=== PATIENT | male | born 1945 | race Caucasian/White ===

== ENCOUNTER 2021-09-26 08:47 | Day surgery (SDC) | payer MEDICARE, BC ==
[2021-09-24 18:12] VITALS: BMI 30.7
[~2021-09-26 08:47] MED LIST: ALPRAZolam 0.25 MG TAB PO PRN; ALPRAZolam 0.5 MG TAB PO PRN; ASPIRIN 325 MG TAB PO STA; ATORVASTATIN 80 MG TAB PO STA; HEPARIN SODIUM,PORCINE 10,000 UNIT in SODIUM CHLORIDE 0.9% 1,000 ML IRRIGATION PRN; HEPARIN SODIUM,PORCINE 2,500 UNIT in SODIUM CHLORIDE 0.9% 250 ML IRRIGATION PRN; NITROGLYCERIN SL TABS 0.4 MG TAB SUBLINGUAL PRN; SODIUM CHLORIDE 0.9% 1,000 ML in EMPTY BAG 1 BAG IV SCH
[2021-09-26 09:10] VITALS: TEMP 97.7
[2021-09-26 09:35] LABS: African American GFR (CKD) >90 (>60 ml/min/1.73 sqM); Anion Gap 6 mmol/L; Blood Urea Nitrogen 9 mg/dL (9-20); Calcium 9.1 mg/dL (8.4-10.2); Carbon Dioxide 24 mmol/L (22-30); Chloride 108 mmol/L (98-107); Glucose 119 mg/dL (74-99); Non-African American GFR(CKD) 85 (>60 ml/min/1.73 sqM); Potassium 4.4 mmol/L (3.5-5.1); Sodium 138 mmol/L (137-145)
[2021-09-26 09:40] LABS: HCT 52.9 % (39.0-53.0); HGB 17.8 gm/dL (13.0-17.5); MCH 32.7 pg (25.0-35.0); MCHC 33.6 g/dL (31.0-37.0); MCV 97.3 fL (80.0-100.0); Mean Platelet Volume 7.2; Platelet Count 214 k/uL (150-450); RBC 5.44 m/uL (4.30-5.90); RDW 13.2 % (11.5-15.5); WBC 7.1 k/uL (3.8-10.6)
[2021-09-26 10:33] LABS: Band Neutrophils % 1 %; Eosinophils # (M) 0.36 k/uL (0-0.7); Metamyelocytes # (M) 0.07 k/uL (0); Metamyelocytes % 1 %; Monocytes # (M) 0.92 k/uL (0-1.0); Neutrophils % (M) 51 %; Nucleated Red Blood Cells 0 /100 WBC (0-0); Total Cells Counted 200
[2021-09-26 10:34] LABS: Reactive Lymphocytes Present
[2021-09-26 10:35] LABS: RBC Morphology Normal
[2021-09-26] MEDS ORDERED: HEPARIN SODIUM 1,000 UN/ML (10ML VL) ONE (10:38)
[2021-09-26] MEDS: MIDAZOLAM 2 MG/2 ML VIAL IV ONE ×3 (10:48→11:37)
[2021-09-26] MEDS ORDERED: LIDOCAINE 1% INJ 10MG/ML (5 ML VIAL-PF) SQ ONE (10:50)
[2021-09-26] MEDS: VERAPAMIL SYRINGE (5 MG/10 ML) INTRAARTER ONE ×2 (10:54→11:07)
[2021-09-26] MEDS ORDERED: HEPARIN SODIUM 1,000 UN/ML (10ML VL) IV ONE (10:55)
[2021-09-26] MEDS ORDERED: LIDOCAINE 1% INJ 10MG/ML (30 ML VIAL-PF) SQ ONE (11:19)
[2021-09-26] MEDS ORDERED: IOPAMIDOL-300 100ML BTL INJ ONE (11:35)
[2021-09-26] MEDS ORDERED: NITROGLYCERIN 1000MCG/10ML SYRINGE INTRAARTER ONE (11:45)
[2021-09-26] MEDS ORDERED: IOPAMIDOL-370 100ML BTL INJ ONE (11:49)
[2021-09-26] MEDS ORDERED: SODIUM CHLORIDE 0.9% 1,000 ML IV SCH (12:00)
[2021-09-26] MEDS ORDERED: VERAPAMIL 2.5 MG/ML 2 ML AMP ONE (12:04)
[2021-09-26] MEDS ORDERED: ALBUTEROL HFA INHALER INHALATION PRN (13:05)
[2021-09-26] MEDS ORDERED: ALBUTEROL NEBULIZED 2.5 MG/3 ML INHALATION PRN (13:17)
[2021-09-26 14:51] VITALS: BP 133/65; PULSE 54; RESP 16
--- NOTE | 2021-09-26 20:10 | CC ---
CARDIAC CATHETERIZATION REPORT DATE OF SERVICE: 09/26/2021 PROCEDURE: 1. Left heart catheterization and coronary angiography. 2. IFR assessment of proximal LAD lesion. PERFORMED BY: Dr. Malia Dubon. Moderate conscious sedation time was 64 minutes. The patient was administered Versed. Oxygenation, hemodynamics and EKG were monitored closely. CLINICAL INFORMATION: Mr. Farshad Escobedo is a 76-year-old gentleman with history of lung malignancy, previous resection, moderate aortic regurgitation and mild stenosis, calcified coronary arteries, who had a recent positive stress test with Lexiscan which revealed inferolateral reversible defect with preserved ejection fraction. He was advised cardiac cath after due discussion. PROCEDURE NOTE: Under local anesthesia and strict aseptic precautions, a 6-Tajik introducer was placed in the right radial artery. There was extreme tortuosity in the ascending aorta. With some difficulty I did selective angiography of the right coronary artery. There was no significant disease. I could not advance the left catheter down into the aortic root. After some effort, I abandoned this and switched over to the right femoral approach. Under strict aseptic precautions and local anesthesia, a 6-Tajik introducer was placed in the right femoral artery. Using standard Joy catheters I performed coronary angiography, and a pigtail catheter was used to check LV pressure, but LV gram was not performed. I noted that there was a moderate to intermediate lesion in the LAD. It was just after a diagonal branch. I performed IFR of this vessel which came to be 0.91 and 0.92. I therefore did not pursue intervention. Following this, the sheath was taken out and Angio-Seal device used to secure hemostasis. I took the radial sheath out and obtained good hemostasis with a TR band. Saturation in the fingers was 94%. Patient tolerated the procedure well without complication. Findings were discussed with the patient and his . He will be discharged later on today. CARDIAC CATHETERIZATION FINDINGS: RIGHT CORONARY ARTERY: Technically a codominant vessel. It has no significant disease, 30% to 40% narrowing proximally. Minor irregularities and mild to moderate calcification. Distally it continues as a PDA branch. LEFT MAIN CORONARY ARTERY: Short, patent, mildly calcified vessel. No significant disease. It trifurcates into LAD, ramus and circumflex. LEFT ANTERIOR DESCENDING CORONARY ARTERY: Good-caliber vessel gives off a diagonal branch and there is an eccentric 55% lesion. Then the caliber improves, gives off smaller diagonal septal branches and runs all the way to the apex. This is an intermediate lesion immediately after a diagonal branch in the LAD. LEFT POSTERIOR CIRCUMFLEX CORONARY ARTERY: This is a fair-caliber vessel that runs laterally, gives off a good-sized obtuse marginal AV groove branch. No significant disease. RAMUS INTERMEDIUS: This is a small-caliber vessel, fair distribution, minor irregularities. No significant disease. HEMODYNAMICS: The left ventricular end-diastolic pressure was about 14 mmHg and there was a gradient of about 10 to 15 mmHg on pullback pressures. FINAL IMPRESSION: This patient has normal filling pressures, mild 10 to 15 mm gradient across aortic valve with a pigtail catheter on pullback. A codominant system. No significant disease in the RCA or circumflex or ramus. LAD had an intermediate 55% lesion. Left main is free of significant disease. RECOMMENDATIONS: I advised FFR, which was performed in the same setting. IFR PROCEDURE DETAILS: I used a JL4.5 guide catheter to cannulate the left coronary artery. The IFR wire was advanced and positioned in the mid to distal LAD. After appropriate calibration, I checked multiple IFR values; all of them came out to be in the range of 0.91 to 0.92. This was therefore not considered significant. Interestingly, the ischemia noted on the stress test was actually in the inferolateral wall. I discussed this with the patient. I did not do any intervention and I suggested we will do a stress test to check his symptoms of exertional shortness of breath if it corresponds with any EKG changes and explained this to the patient. He will be discharged later on today. MMODL / IJN: [id number] /
[2021-09-26] MEDS ORDERED: TIMOLOL 0.5% OPHTH DROPS 5 ML BTL BOTH EYES SCH (21:00)
[2021-09-26] MEDS ORDERED: NON FORMULARY DRUG (Diclofenac Sodium [Voltaren] 75 MG Tablet) PO SCH (21:00)
[2021-09-26] MEDS ORDERED: ATORVASTATIN 20 MG TAB PO SCH (21:00)
[2021-09-27] MEDS ORDERED: PANTOPRAZOLE 40 MG TABLET PO SCH (07:30)
[2021-09-27] MEDS ORDERED: FORMOTEROL FUMARATE 20 MCG/2 ML NEBU INHALATION SCH (08:00)
[2021-09-27] MEDS ORDERED: IPRATROPIUM 0.5 MG/2.5 ML NEBU INHALATION SCH (08:00)
[2021-09-27] MEDS ORDERED: ASPIRIN 81 MG PO SCH (09:00)
[2021-09-27] MEDS ORDERED: NON FORMULARY DRUG (Latanoprost/Pf [Latanoprost 0.005% Eye Drop] 7.5 ML Ml) BOTH EYES SCH (09:00)
[2021-09-27] MEDS ORDERED: METOPROLOL TARTRATE 25 MG TAB PO SCH (09:00)
[2021-09-27] MEDS ORDERED: FINASTERIDE 5 MG TAB PO SCH (09:00)
[2021-09-27] MEDS ORDERED: TAMSULOSIN 0.4 MG CAP.ER.24H PO SCH (09:00)
== END 2021-09-26 16:40 | disposition home or self-care (01) ==
LOC: CATHCVL 08:47
PROVIDERS: ATTEND Internal Medicine Interventional Cardiology
DX: I25.10 Atherosclerotic heart disease of native coronary artery without angina pectoris (principal); R94.39 Abnormal result of other cardiovascular function study; I35.2 Nonrheumatic aortic (valve) stenosis with insufficiency; I10 Essential (primary) hypertension; E78.5 Hyperlipidemia, unspecified; I71.2 Thoracic aortic aneurysm, without rupture; E78.00 Pure hypercholesterolemia, unspecified; Z20.822 Contact with and (suspected) exposure to COVID-19; Z85.118 Personal history of other malignant neoplasm of bronchus and lung; Z90.2 Acquired absence of lung [part of]; Z79.899 Other long term (current) drug therapy; Z85.820 Personal history of malignant melanoma of skin; Z82.49 Family history of ischemic heart disease and other diseases of the circulatory system
CPT/HCPCS: 93458; 93799; 80048; 85025; 87635; C1769 ×5; C1760; C1887; C1894 ×2; J2250; J2001 ×2; J1644; Q9967 ×2

== ENCOUNTER 2023-12-30 08:03 | Inpatient (IN) | payer MEDICARE, BC ==
[~2023-12-30 08:03] MED LIST changes: -ALPRAZolam 0.25 MG TAB PO PRN; -ALPRAZolam 0.5 MG TAB PO PRN; -ASPIRIN 325 MG TAB PO STA; -ATORVASTATIN 80 MG TAB PO STA; -HEPARIN SODIUM,PORCINE 10,000 UNIT in SODIUM CHLORIDE 0.9% 1,000 ML IRRIGATION PRN; -HEPARIN SODIUM,PORCINE 2,500 UNIT in SODIUM CHLORIDE 0.9% 250 ML IRRIGATION PRN; -NITROGLYCERIN SL TABS 0.4 MG TAB SUBLINGUAL PRN; -SODIUM CHLORIDE 0.9% 1,000 ML in EMPTY BAG 1 BAG IV SCH; +TRANEXAMIC 1,000 MG/100ML-NACL 1,000 MG in SALINE 1 100ML.BAG IVPB PRN; +fentaNYL (PF) 50 MCG/ML 2 ML AMP IV PRN
[2023-12-30] MEDS: ACETAMINOPHEN TAB 500 MG TAB PO PRN (08:45)
[2023-12-30] MEDS: MELOXICAM 7.5 MG TAB PO PRN (08:45)
[2023-12-30] MEDS: GABAPENTIN 300 MG CAP PO PRN (08:45)
[2023-12-30] MEDS: ONDANSETRON 4 MG/2 ML VIAL IVP PRN (09:30)
[2023-12-30] MEDS: LACTATED RINGERS 1,000 ML IV SCH ×2 (09:30→17:15)
[2023-12-30] MEDS: DEXAMETHASONE SOD PHOSPHATE 4 MG/ML 1 ML VIAL IV ONE (09:30)
[2023-12-30] MEDS ORDERED: HYDROmorphone 0.5 MG/0.5 ML SYRINGE IVP PRN ×2 (09:34)
[2023-12-30] MEDS ORDERED: NA PHOS,M-B/NA PHOS,DI-BA 133 ML ENEMA RECTAL PRN (09:34)
[2023-12-30] MEDS ORDERED: NALOXONE 0.4 MG/ML 1 ML VIAL IV PRN (09:34)
[2023-12-30] MEDS ORDERED: MAGNESIUM HYDROXIDE 2,400 MG/30 ML CUP PO PRN (09:34)
[2023-12-30] MEDS ORDERED: HYDROcodone/APAP 7.5-325MG 1 EACH TAB PO PRN (09:37)
[2023-12-30] MEDS: MIDAZOLAM 2 MG/2 ML VIAL IV ONE (09:37)
[2023-12-30] MEDS: IV FLUID CONTINUATION 1,000 ML IV ONE (09:39)
[2023-12-30 10:04] LABS: Partial Thromboplastin Time 25.2 sec (22.0-30.0); Prothrombin Time 10.8 sec (10.0-12.5)
[2023-12-30] MEDS ORDERED: MIDAZOLAM 2 MG/2 ML VIAL ONE (10:12)
[2023-12-30] MEDS ORDERED: diphenhydrAMINE 50 MG/ML 1 ML VIAL ONE (10:12)
[2023-12-30] MEDS ORDERED: ROPIVACAINE 5 MG/ML 30 ML VIAL ONE (10:12)
[2023-12-30] MEDS ORDERED: PHENYLEPHRINE-0.9% NACL SYG 1,000 MCG/10 ML SYRINGE ONE (10:12)
[2023-12-30] MEDS ORDERED: fentaNYL (PF) 50 MCG/ML 2 ML AMP ONE (10:12)
[2023-12-30] MEDS ORDERED: TRANEXAMIC 1,000 MG/100ML-NACL PREMIX BAG ONE (10:12)
[2023-12-30] MEDS ORDERED: ROPIVACAINE 1,100 MG, SODIUM CHLORIDE 0.9% 500 ML 330 ML, EMPTY PAIN BALL 1 EACH MISCELLANE PRN (12:45)
[2023-12-30] MEDS: HYDROmorphone 0.5 MG/0.5 ML SYRINGE IVP PRN (14:02)
--- NOTE | 2023-12-30 14:16 | OP ---
OPERATIVE REPORT DATE OF SERVICE : 12/30/2023 STATISTICIAN MATHEMATICAL: Josse James PA-C. PREOPERATIVE DIAGNOSIS: Left knee osteoarthrosis. POSTOPERATIVE DIAGNOSIS: Left knee osteoarthrosis. PROCEDURE PERFORMED: Left total knee arthroplasty. ANESTHESIA: Spinal sedation. ESTIMATED BLOOD LOSS: 100 mL. TOURNIQUET TIME: 51 minutes at 250 mmHg. COMPLICATIONS: None apparent. DRAINS: None. DISPOSITION: Postanesthesia care unit. INDICATIONS: Farshad is a very pleasant 78-year-old male with longstanding history of left knee pain. History and physical examination are consistent with advanced left knee osteoarthrosis. He has been through significant nonoperative management up to this point. Further treatment options were discussed, and he has decided to go forward with the left total knee arthroplasty. Risks of procedure were discussed with him in detail. These risks included, but were not limited to risk of infection, nerve damage, bleeding, pain, and a small risk of deep vein thrombosis which could lead to fatal pulmonary embolism. There is also a small risk of loosening of the implant, which could require revision operation. The patient understands these risks. All of his questions were answered to his satisfaction. Appropriate informed consent was obtained. DESCRIPTION OF THE PROCEDURE: The patient was identified in the preoperative holding area. Surgical site was marked by both the patient and myself. He was given 2 g of Ancef IV for prophylactic purposes. He was then transported to the operative suite. He was placed supine on the operating room table. Spinal anesthetic was then administered, and dosed per the anesthesia department without apparent complication. Examination under anesthesia was then performed. The patient was 2 to 3 degrees shy of full extension. He had 100 degrees of flexion of medial collateral ligament, lateral collateral ligament, posterior cruciate ligaments were stable. Tourniquet was then placed high on the left upper thigh, well-padded in preparation for surgery. The patient's left lower extremity was then prepped and draped in usual sterile fashion. A standard surgical pause was undertaken to ensure that we were operating the correct site and appropriate preoperative antibiotics had been given. All staff in the room were in agreement, and we proceeded. The outlines of the patella were marked with a surgical pen. A planned 12 cm vertical incision centered over the patella was marked with a surgical pen. Leg was then exsanguinated with an Esmarch dressing. The knee was then flexed and the tourniquet was inflated to 250 mmHg. Total tourniquet time for the procedure was 51 minutes. Incision was then made with a 10-blade scalpel. Dissection was carried down sharply to the overlying fascia. Great care was taken to minimize the skin flaps. The knee was then exposed using a standard medial parapatellar approach. A small cuff of quadriceps tendon was then left for suturing. He was in a bit of varus preoperatively. A standard medial release was then made. Superficial medial collateral ligament was dissected off the bone around to the posterior aspect of the proximal tibia. The medial meniscus was then excised as well. The lateral meniscus was also released anteriorly. The leg was then externally rotated. The patella was everted. The knee was flexed. Retractors were then placed to protect the collateral ligaments. I then proceeded to remove the infrapatellar fat pad. This was excised sharply tangentially with the fibers of the patellar tendon. I then proceeded to remove the peripheral osteophytes. This was done with a rongeur. I then proceeded with the distal femoral resection. He did have near full extension. A planned 9 mm resection was then done. The femoral canal was then entered in the midline, the femur approximately 10 mm anterior to the origin of the posterior cruciate ligament. The gino was then advanced down the center of the femur and placed intramedullary. Based on the preoperative radiographs, the angle between the anatomic and mechanical axis of the femur was approximately 4 to 5 degrees. The valgus angle of the distal femoral cutting guide was then set at 4 degrees for the left knee. The distal femoral cutting guide was then advanced over the intramedullary gino. This was seated firmly against the femur. I then as mentioned planned to take 9 mm off the distal femur. The femoral cutting block was then secured to the femur with pins. The jig was then removed. The distal femoral cut was made through the slot of the block. The pins were removed and the distal femoral cutting block was removed. The accuracy of the distal femoral cuts was checked with 2 flat bars. I then proceeded with femoral sizing. Posterior referencing sizing guide was held firmly against the resected distal surface of the femur. The posterior condyles were resting on the posterior plane of the guide. The sizing stylus was then placed onto the anterior femur. The size was measured as a size 9. I then assessed for femoral rotation. The plan is for 3 degrees of external rotation. Three degrees of external rotation was placed onto the jig. These holes were then marked. We then confirmed the rotation by 3 separate methods. This was done using epicondylar axis as well as Whitesides line and posterior referencing. It was deemed that the external rotation was proper. I then went forward with placing the femoral cutting block. This was placed over the previously placed pin holes. The Hermes wing was then placed on the anterior slots to ensure that we would not notch the anterior femur with the anterior femoral cut. I then proceeded with the anterior femoral cut. This was flushed with the anterior cortex of the femur. The posterior cuts were then made followed by the anterior chamfer cut, then the posterior chamfer cut. The cutting block was then removed. Throughout the resection, the collateral ligaments were protected with retractors. I then placed a trial size 9 femur. It fit very nice mediolateral and fit flush with the distal end of the femur. The drill hole was then made. I then proceeded with the tibial cut. I planned for cruciate-retaining knee. The guide was placed and set for varus, valgus, and for slope. Height was set for approximate 2 mm resection from the medial tibial plateau, which was the lower side. I was happy with the alignment and the amount of resection. The cutting block was then pinned to the proximal tibia. The alignment gino was removed. The proximal tibia was resected with a reciprocating saw. Again, this was done with retractors protecting the collateral ligaments as well as the posterior cruciate ligament. I then proceeded to evaluate the flexion and extension gaps. A 10 mm block was then placed. The flexion and extension gaps were equal. I then proceeded with resection of very minimal posterior osteophytes. This was done using a curved osteotome. This resected the posterior osteophytes, and posterior capsular stripping was done off the posterior aspect of the femur at this time. The osteophytes were then removed. I then proceeded with resection of the patella. The thickness of patella was measured using the caliper. The thickness was 22 mm. The thickness of the anticipated patellar dome was taken into account. Resection was then performed and confirmed to be equal in 4 quadrants using a caliper. Approximately 14 mm of bone remained after resection. A 32 x 8.5 mm standard patellar trial was then placed. The holes were drilled and the trial was then placed. I then proceeded with sizing tibial plate. A size F tibial plate fit very nicely. I then placed the trial femur, the tibial tray, and the patellar button. A 10 mm trial tibial insert was also placed. The components fit very nicely. He had full extension and flexion. The extension and flexion gaps were equal and stable to both varus and valgus stress. The patella tracked appropriately. The tibial tray rotation was marked with a Bovie. This was externally rotated properly. I then proceeded with tibial preparation. I first drilled the femoral holes and removed the femoral component. The tibial tray was then set for proper external rotation as well as medial lateral placement of the tibia. It was then pinned into place. I then proceeded with punching the keel. I then decided to proceed with cementing of all of our components. The knee was thoroughly irrigated with sterile saline solution via pulse lavage. The IrriSept antiseptic solution was also utilized. The lateral genicular artery was identified and cauterized. All blood was removed from the bone of the tibia, femur, and patella with pulse lavage. I then proceeded with cementing. Two packs of antibiotic bone cement were prepared on the back table by surgical services assistant. I then proceeded with cementing of the tibia first. The cement was impacted in the keel as well as deeply seated into the bone. A second coat cement was then placed. The tibia was then impacted into place. Excess cement was removed with Bucyrus's and Jokers. I then proceeded with cementing of the femoral component. The femoral component was also cemented using standard technique. Excess cement was removed. A 10 mm trial insert was then placed into the knee. It was brought into full extension with a constant axial load placed until the cement had hardened. The patellar component was also cemented. This was held firmly with a compressive device until the cement had dried. When the cement had dried, the knee was taken out of extension. All excess cement was removed from around the prosthesis. I then trialed the knee with a 10 mm insert. Flexion and extension gaps were appropriate. The knee was stable. It came into full extension. I decided to go forward with a 10 mm medial congruent cross-linked cruciate- retaining tibial insert. Polyethylene was then placed onto the tibial tray and locked into place. The knee was then reduced. The knee was again further irrigated with sterile saline solution with antibiotic added. The tourniquet was then deflated. Total tourniquet time for the procedure was 51 minutes at 250 mmHg. Final components were Ronna Persona size 9 cruciate-retaining femoral component, size F tibial tray, a 10 mm medial congruent cruciate-retaining polyethylene insert, and a 32 x 8.5 mm patella. I then proceeded with closure. Again, the knee was thoroughly irrigated. The quadriceps tendon and the medial retinaculum were reapproximated with #2 Ethibond suture. The extensor mechanism was then closed with #2 Quill suture. Subcutaneous tissues were closed with 2-0 Vicryl interrupted suture. The skin was closed with a running 3-0 Quill suture. Dermabond was applied to the incision. Sterile compressive dressings were applied. All sponge and needle counts were deemed correct prior to closure. The patient tolerated the procedure without apparent complication. He was transferred to recovery room in stable condition. MMANAL / IJN: [id number] /
[2023-12-30] MEDS ORDERED: ALBUTEROL HFA INHALER INHALATION PRN (14:54)
--- NOTE | 2023-12-30 14:56 | XR ---
EXAMINATION TYPE: XR knee limited LT DATE OF EXAM: 12/30/2023 12:51 PM CLINICAL INDICATION: Male, 78 years old with history of Evaluation for Postop abnormality and alignme nt; [facility] COMPARISON: None. TECHNIQUE: XR knee limited LT; examined in Frontal, lateral and oblique projections. FINDINGS: Status post total knee arthroplasty changes with hardware in appropriate alignment and in tact. No evidence of fracture. Subcutaneous lucencies and lucencies within the joint consistent with surgical changes. IMPRESSION: Status post total knee arthroplasty changes with hardware intact and appropriate alignment. No fractu res identified. [facility], , 12/30/2023 1:11 PM
[2023-12-30] MEDS: IPRATROPIUM 0.5 MG/2.5 ML NEBU INHALATION SCH (16:31)
[2023-12-30] MEDS: HYDROcodone/APAP 7.5-325MG 1 EACH TAB PO PRN (17:14)
[2023-12-30] MEDS: SENNOSIDES-DOCUSATE SODIUM 1 EACH TAB PO SCH (20:42)
[2023-12-30] MEDS: BENZONATATE 100 MG CAP PO SCH (20:42)
[2023-12-30] MEDS: ATORVASTATIN 20 MG TAB PO SCH (20:42)
[2023-12-30] MEDS ORDERED: ASPIRIN 81 MG PO SCH (21:00)
[2023-12-30] MEDS: IPRATROPIUM-ALBUTEROL 3 ML NEB INHALATION SCH (21:11)
[2023-12-30] MEDS: TIMOLOL 0.5% OPHTH DROPS 5 ML BTL BOTH EYES SCH (22:02)
--- NOTE | 2023-12-31 05:26 | CONS ---
CONSULTATION Bilateral knee pain, came to the hospital for knee replacement. HOME MEDICATIONS: 1. Metoprolol 100 b.i.d. 2. Finasteride 5 mg daily. 3. Diclofenac 75 b.i.d. 4. Uroxatral 10 mg daily. PAST MEDICAL HISTORY: Melanoma, carcinoma, lung cancer, shortness of breath, lung disease, breast cancer. ALLERGIES: Demerol. PHYSICAL EXAMINATION: Please see further orders. PLAN: Postop home medications have been reordered. Prognosis guarded. Possible followup in the next 24 to 48 hours. MMODL / IJN: [id number] /
[2023-12-31] MEDS: TAMSULOSIN 0.4 MG CAP.ER.24H PO SCH (08:16)
[2023-12-31] MEDS: PANTOPRAZOLE 40 MG TABLET PO SCH (08:16)
[2023-12-31] MEDS: FINASTERIDE 5 MG TAB PO SCH (08:16)
[2023-12-31] MEDS: ASPIRIN 81 MG PO SCH (08:16)
[2023-12-31] MEDS: FORMOTEROL FUMARATE 20 MCG/2 ML NEBU INHALATION SCH (08:36)
[2023-12-31] MEDS: LATANOPROST 0.005% OPHTH DROPS 2.5 ML BTL BOTH EYES SCH (08:51)
[2023-12-31 10:17] LABS: HCT 41.1 % (39.6-50.0); MCH 31.7 pg (27.0-32.0); MCHC 34.1 g/dL (32.0-37.0); Mean Platelet Volume 9.5 FL (9.5-12.2); NRBC Per 100 WBC 0 X 10*3/uL (0.00-0.01); Platelet Count 223 X 10*3/uL (140-440); RBC 4.42 X 10*6/uL (4.40-5.60); RDW 12.7 % (11.5-14.5)
--- NOTE | 2023-12-31 10:28 | P.PN ---
Progress Note - Text 12/31/23 615am 78-year-old male status post total knee replacement by Dr. Disla patient has an On-Q pump with a solution running at 8 cc an hour with a VAS of 0. Patient does have pain above the knee that is secondary to the tourniquet. Plan to continue On-Q pump infusion
--- NOTE | 2023-12-31 10:43 | P.ANPRN ---
Procedure Note - Anesthesia - Nerve Block Performed Left Adductor Canal Infusion Time Out Performed: Yes Date of Procedure: 12/30/23 Procedure Start Time: :40 Procedure Stop Time: :48 Location of Patient: PreOp Indication: Acute Post-Operative Pain, Requested by Surgeon Sedation Type: Sedate with meaningful contact maintained Preparation: Sterile Prep, Sterile Dressing Position: Supine Catheter: Indwelling Needle Types: Pajunk Needle Gauge: 21 Ultrasound used to visualize needle placement: Yes Ultrasound used to observe medication spread: Yes Blood Aspirated: No Pain Paresthesia on Injection Noted: No Resistance on Injection: Normal Image Stored and Saved: Yes Events: Uneventful and Well Tolerated (Ropivacaine 0.5% 20 cc plus dexamethasone 4 mg)
--- NOTE | 2023-12-31 10:44 | P.ANPRN ---
Procedure Note - Anesthesia - Nerve Block Performed Left iPack Single Time Out Performed: Yes Date of Procedure: 12/30/23 Procedure Start Time: :49 Procedure Stop Time: :52 Location of Patient: PreOp Indication: Acute Post-Operative Pain, Requested by Surgeon Sedation Type: Sedate with meaningful contact maintained Preparation: Sterile Prep Position: Supine Needle Types: Pajunk Ultrasound used to visualize needle placement: Yes Ultrasound used to observe medication spread: Yes Blood Aspirated: No Pain Paresthesia on Injection Noted: No Resistance on Injection: Normal Image Stored and Saved: Yes Events: Uneventful and Well Tolerated (Ropivacaine 0.5% 20 cc plus dexamethasone 4 mg)
[2023-12-31 11:05] LABS: Basophils # (A) 0.05 X 10*3/uL (0.00-0.10); Basophils % (A) 0.4 %; Eosinophils # (A) 0.01 X 10*3/uL (0.04-0.35); Eosinophils % (A) 0.1 %; Lymphocytes # (A) 1.83 X 10*3/uL (0.90-5.00); Lymphocytes % (A) 14.2 %; Monocytes # (A) 1.65 X 10*3/uL (0.20-1.00); Monocytes % (A) 12.8 %; Neutrophils # (A) 9.32 X 10*3/uL (1.80-7.70); Neutrophils % (A) 72.2 %
[2023-12-31] MEDS: MULTIVITAMINS, THERA 1 EACH TAB PO SCH (12:03)
--- NOTE | 2023-12-31 16:25 | P.PN ---
Subjective Progress Note Date: 12/31/23 Principal diagnosis: Left TKA Patient is seen at bedside this morning. He is postop day #1 from left total knee arthroplasty. He has pain at the surgical site as expected but denies any new complaints. He denies numbness, tingling or calf pain. Review of systems is negative for fever, chills, chest pain, shortness of breath or other Objective - Vital Signs Vital signs: Vital Signs Temp 98.6 F 12/31/23 14:00 Pulse 80 12/31/23 15:51 Resp 22 12/31/23 14:00 BP 134/74 12/31/23 14:00 Pulse Ox 93 L 12/31/23 14:00 FiO2 Intake & Output 12/30/23 12/31/23 12/31/23 18:59 06:59 18:59 Intake Total 700 Output Total 100 Balance 600 Weight 93.4 kg Intake: IV 700 Output: Estimated Blood Loss 100 Other: Voiding Method Toilet Urinal # Voids 0 2 - Exam Inspection reveals a benign surgical wound. There is no active bleeding or drainage. Neurovascular status is intact throughout the lower extremity with motor and sensation fully intact. Calf is soft and nontender. 2+ dorsalis pedis pulse and less than 2 second cap refill is present. - Constitutional General appearance: Present: no acute distress - Labs CBC & Chem 7: 12/31/23 03:08 Labs: Abnormal Lab Results - Last 24 Hours (Table) 12/31/23 Range/Units 03:08 WBC 12.90 H (4.50-10.00) X 10*3/uL Neutrophils # 9.32 H (1.80-7.70) X 10*3/uL Monocytes # 1.65 H (0.20-1.00) X 10*3/uL Eosinophils # 0.01 L (0.04-0.35) X 10*3/uL Assessment and Plan (1) History of total left knee replacement Narrative/Plan: He will continue with routine postop orthopedic protocol including pain management, wound care, PT, DVT prophylaxis and medical management. Expect that he will transfer to home tomorrow Current Visit: Yes Status: Acute Priority: Medium Code(s): Z96.652 - PRESENCE OF LEFT ARTIFICIAL KNEE JOINT SNOMED Code(s): 9386030849147 Time with Patient: Less than 30
[2023-12-31] MEDS: HYDROcodone/APAP 10-325MG 1 EACH TAB PO PRN (17:29)
[2024-01-01] MEDS: ONDANSETRON 4 MG/2 ML VIAL IVP PRN (04:58)
[2024-01-01] MEDS: HYDROcodone/APAP 10-325MG 1 EACH TAB PO PRN (04:59)
--- NOTE | 2024-01-01 05:15 | P.PN ---
Subjective Progress Note Date: 12/31/23 This is a pleasant 78-year-old male who was recently admitted under orthopedics underwent left total knee arthroplasty with Dr. Disla. 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 Patient is currently up and walking to the bathroom with a walker and standby assistance and reports significant pain in the left knee. Patient reports was able to work with physical therapy although probably staying over another night for pain management and reevaluation with therapy in the morning. Patient reports was able to do some stairs 1 time with significant pain. P atient is afebrile with no reports of chest pain or shortness of breath. Patient reports to tolerating diet with no reported nausea or vomiting. Patient is urinating and reports to passing gas but has not had a bowel movement yet. Review of systems: Constitutional: No reports of fatigue, fever, or chills Cardiovascular: No reports of chest pain or palpitations Respiratory: No reports of shortness of breath or cough GI: No reports of nausea, no reports of vomiting, no diarrhea, no bowel movement as of yet : No reports of dysuria or retention Neurovascular: reports of generalized weakness, extreme left knee pain All medications have been reviewed PHYSICAL EXAMINATION: GENERAL: The patient is alert and oriented x4, Well developed, well nourished. Elderly appearing HEENT: Pupils are round and equally reacting to light. EOMI. no scleral icterus. No conjunctival pallor. Normocephalic, atraumatic. No pharyngeal erythema. No thyromegaly. CARDIOVASCULAR: S1 and S2 muffled PULMONARY: diminished breath sounds bilaterally with no wheezing or rhonchi noted. ABDOMEN: soft. Nontender on exam. non-distended, normoactive bowel sounds. No palpable organomegaly. MUSCULOSKELETAL: No joint swelling or deformity. EXTREMITIES: No cyanosis, clubbing, or pedal edema. Left knee surgical dressing is dry and intact NEUROLOGICAL: Gross neurological examination did not reveal any focal deficits. Diffuse weakness SKIN: No rashes. 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 Patient has been seen and evaluated by PT/OT therapy and reports he felt he did okay although awaiting final notes to determine if patient will require rehab or home with home care and outpatient rehab. Patient reports the left knee pain is severe and likely being monitored overnight for better pain m anagement and reevaluation by physical therapy again in the morning. Patient would like to go home with family and has support. All medications reviewed and resumed as appropriate Encouraged incentive spirometer use at least 10 times an hour while awake Continue as needed bowel regimen and pain management per orthopedics We will continue to follow with orthopedics during hospitalization. For this consultation. The impression and plan of care has been dictated by Marylou Singh, nurse practitioner as directed. Dr. Meg MD I have performed a history and examination and MDM of this patient, discussed the same with the dictator, and agree with the dictator's assessment and plan as written ,documented as a scribe. Based on total visit time, I have performed more than 50% of the visit. Any additional findings or plans will be noted. Objective - Vital Signs Vital signs: Vital Signs Temp 98.2 F 12/31/23 07:30 Pulse 80 12/31/23 09:01 Resp 20 12/31/23 07:30 BP 120/62 12/31/23 07:30 Pulse Ox 95 12/31/23 07:30 FiO2 Intake & Output 12/30/23 12/31/23 12/31/23 18:59 06:59 18:59 Intake Total 700 Output Total 100 Balance 600 Weight 93.4 kg Intake: IV 700 Output: Estimated Blood Loss 100 Other: Voiding Method Toilet Urinal # Voids 0 2 - Labs CBC & Chem 7: 12/31/23 03:08
[2024-01-01] MEDS: traMADol 50 MG TAB PO PRN (08:17)
--- NOTE | 2024-01-01 08:49 | P.DS ---
Providers Attending physician: Kentrell Disla Consults: 12/30/23 09:34 Consult Physician Routine Consulting Provider: Price Hagan Consult Reason/Comments: post op medical management Do you want consulting provider notified?: Yes Primary care physician: Bayron Apodaca MD Hospital Course: Patient is a very pleasant 78-year-old male, who presented to preop for scheduled left total knee arthroplasty for severe left knee osteoarthritis that had failed conservative management, on 12/30/[address] Kentrell Disla. Patient tolerated the procedure well. Patient was transferred to orthopedic floor. Patient worked with physical therapy and did well. Patient's pain has been controlled with oral pain medication. Patient was examined at bedside this morning. Incision was clean, no active drainage, no surrounding erythema. Spo ke with nursing staff who will apply a new dressing. Patient's femoral nerve function was grossly intact. Patient was able to plantarflex and dorsiflex the ankle and toes. Patient's foot appeared well-perfused with capillary refill under 2 seconds. Patient will have outpatient follow-up Assessment: Status post left total knee arthroplasty for severe left knee osteoarthritis on 12/30/[address] Kentrell Disla Patient Condition at Discharge: Good Plan - Discharge Summary Discharge Rx Participant: Yes New Discharge Prescriptions: New Aspirin [Adult Low Dose Aspirin EC] 81 mg PO BID #60 tab Docusate [Colace] 100 mg PO BID #60 capsule HYDROcodone/APAP 10-325MG [[place] 10-325] 1 tab PO Q4HR PRN #32 tab PRN Reason: Pain Ondansetron [Zofran] 4 mg PO Q8HR PRN #21 tab PRN Reason: Nausea No Action Finasteride [Proscar] 5 mg PO DAILY Alfuzosin HCl [Alfuzosin HCl ER] 10 mg PO DAILY Atorvastatin [Lipitor] 20 mg PO HS Esomeprazole Magnesium [NexIUM] 20 mg PO DAILY Aspirin 81 mg PO DAILY Timolol 0.5% Ophth Soln [Timoptic 0.5% Ophth Soln] 1 drop BOTH EYES BID Diclofenac Sodium [Voltaren] 75 mg PO BID Latanoprost/Pf [Latanoprost 0.005% Eye Drop] 1 drop BOTH EYES DAILY Albuterol Inhaler [Ventolin Hfa Inhaler] 1 puff INHALATION Q3H PRN PRN Reason: Shortness Of Breath Or Wheezing Umeclidinium Brm/Vilanterol Tr [Anoro Ellipta 62.5-25 Mcg INH] 1 puff INHALATION DAILY Benzonatate 100 mg PO BID Ipratropium-Albuterol Nebulize [Duoneb 0.5 mg-3 mg/3 ml Soln] 3 ml INHALATION BID Discharge Medication List Alfuzosin HCl [Alfuzosin HCl ER] 10 mg PO DAILY 09/24/21 [History] Aspirin 81 mg PO DAILY 09/24/21 [History] Atorvastatin [Lipitor] 20 mg PO HS 09/24/21 [History] Diclofenac Sodium [Voltaren] 75 mg PO BID 09/24/21 [History] Esomeprazole Magnesium [NexIUM] 20 mg PO DAILY 09/24/21 [History] Finasteride [Proscar] 5 mg PO DAILY 09/24/21 [History] Latanoprost/Pf [Latanoprost 0.005% Eye Drop] 1 drop BOTH EYES DAILY 09/24/21 [History] Timolol 0.5% Ophth Soln [Timoptic 0.5% Ophth Soln] 1 drop BOTH EYES BID 09/24/21 [History] Albuterol Inhaler [Ventolin Hfa Inhaler] 1 puff INHALATION Q3H PRN 09/25/21 [History] Umeclidinium Brm/Vilanterol Tr [Anoro Ellipta 62.5-25 Mcg INH] 1 puff INHALATION DAILY 09/25/21 [History] Benzonatate 100 mg PO BID 12/24/23 [History] Ipratropium-Albuterol Nebulize [Duoneb 0.5 mg-3 mg/3 ml Soln] 3 ml INHALATION BID 12/24/23 [History] Aspirin [Adult Low Dose Aspirin EC] 81 mg PO BID #60 tab 12/31/23 [Rx] Docusate [Colace] 100 mg PO BID #60 capsule 12/31/23 [Rx] HYDROcodone/APAP 10-325MG [[place] 10-325] 1 tab PO Q4HR PRN #32 tab 12/31/23 [Rx] Ondansetron [Zofran] 4 mg PO Q8HR PRN #21 tab 12/31/23 [Rx] Follow up Appointment(s)/Referral(s): Kentrell Disla MD [STAFF PHYSICIAN] - 10 Days Activity/Diet/Wound Care/Special Instructions: Weight bear as tolerated May shower after 3 days if no bleeding Keep wound clean and dry Take meds as directed F/U with Dr. Disla in office Discharge Disposition: HOME WITH HOME HEALTH SERVICES
--- NOTE | 2024-01-01 15:02 | P.PN ---
Subjective Progress Note Date: 01/01/24 This is a pleasant 78-year-old male who was recently admitted under orthopedics underwent left total knee arthroplasty with Dr. Disla. 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 Patient is currently up and walking to the bathroom with a walker and standby assistance and reports significant pain in the left knee. Patient reports was able to work with physical therapy although probably staying over another night for pain management and reevaluation with therapy in the morning. Patient reports was able to do some stairs 1 time with significant pain. Pat ient is afebrile with no reports of chest pain or shortness of breath. Patient reports to tolerating diet with no reported nausea or vomiting. Patient is urinating and reports to passing gas but has not had a bowel movement yet. 01/01/2024 Patient is evaluated in follow-up in the medical floor he is postoperative left total knee arthroplasty with Dr. Disla. Patient was evaluated physical therapy was cleared for discharge home with home care services. He has no acute complaints no chest pain no shortness of breath. He is tolerating diet. He is continued on bowel regimen. He is hemodynamically stable afebrile on room air. He will be going home today. Review of systems: Constitutional: No reports of fatigue, fever, or chills Cardiovascular: No reports of chest pain or palpitations Respiratory: No reports of shortness of breath or cough GI: No reports of nausea, no reports of vomiting, no diarrhea, no bowel movement as of yet : No reports of dysuria or retention Neurovascular: reports of generalized weakness, extreme left knee pain All medications have been reviewed PHYSICAL EXAMINATION: GENERAL: The patient is alert and oriented x4, Well developed, well nourished. Elderly appearing HEENT: Pupils are round and equally reacting to light. EOMI. no scleral icterus. No conjunctival pallor. Normocephalic, atraumatic. No pharyngeal erythema. No thyromegaly. CARDIOVASCULAR: S1 and S2 muffled PULMONARY: diminished breath sounds bilaterally with no wheezing or rhonchi noted. ABDOMEN: soft. Nontender on exam. non-distended, normoactive bowel sounds. No palpable organomegaly. MUSCULOSKELETAL: No joint swelling or deformity. EXTREMITIES: No cyanosis, clubbing, or pedal edema. Left knee surgical dressing is dry and intact NEUROLOGICAL: Gross neurological examination did not reveal any focal deficits. Diffuse weakness SKIN: No rashes. 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 Patient has been seen and evaluated by PT/OT therapy and reports he f elt he did okay although awaiting final notes to determine if patient will require rehab or home with home care and outpatient rehab. For discharge home today with physical therapy. Encouraged incentive spirometer use at least 10 times an hour while awake Continue as needed bowel regimen and pain management per orthopedics We will continue to follow with orthopedics during hospitalization. For this consultation. The impression and plan of care has been dictated by Nurse Servando Prac titioner as directed. Dr. Meg MD I have performed a history and physical examination and medical decision making of this patient, discussed the same with the dictator, and agree with the dictators assessment and plan as written, documented as a scribe. Based on total visit time, I have performed more than 50% of this visit. Objective - Vital Signs Vital signs: Vital Signs Temp 97.5 F L 01/01/24 13:33 Pulse 85 01/01/24 13:33 Resp 18 01/01/24 13:33 BP 135/71 01/01/24 13:33 Pulse Ox 95 01/01/24 13:33 FiO2 Intake & Output 12/31/23 01/01/24 01/01/24 18:59 06:59 18:59 Other: Voiding Method Toilet # Voids 7 3 - Labs CBC & Chem 7: 12/31/23 03:08 Assessment and Plan Time with Patient: Less than 30
[2024-01-01] MEDS ORDERED: HYDROcodone/APAP 7.5-325MG 1 EACH TAB PO PRN (17:20)
[2024-01-01] MEDS: HYDROcodone/APAP 5-325MG 1 EACH TAB PO PRN (20:22)
[2024-01-02] MEDS: ACETAMINOPHEN TAB 325 MG TAB PO PRN (00:47)
[2024-01-02] MEDS: ONDANSETRON 4 MG/2 ML VIAL IVP PRN (02:30)
[2024-01-02] MEDS: METOCLOPRAMIDE 5 MG/ML 2 ML VIAL IVP PRN (05:16)
[2024-01-02] MEDS: PANTOPRAZOLE 40 MG/10 ML VIAL IVP SCH (05:16)
--- NOTE | 2024-01-02 08:37 | P.PN ---
Subjective Progress Note Date: 01/02/24 Patient was cleared from an orthopedic standpoint for discharge on 01/01/2024 in the AM but then proceeded to have nausea and vomiting with oral pain medication which was discussed with nursing staff and we agreed to keep him another night. Patient has been unable to tolerate multiple oral pain medication options, and has had approximately 3 episodes of vomiting since yesterday morning. Patient denies a significant amount of left knee pain, and states their left knee feels very good without opioid oral pain medication. We discussed using antiemetics and anti-inflammatories at home and patient would like to be discharged home today with these. Objective - Vital Signs Vital signs: Vital Signs Temp 98.0 F 01/02/24 01:44 Pulse 76 01/02/24 08:24 Resp 16 01/02/24 01:44 BP 144/73 01/02/24 01:44 Pulse Ox 94 L 01/02/24 01:44 FiO2 Intake & Output 01/01/24 01/02/24 01/02/24 18:59 06:59 18:59 Other: Voiding Method Toilet # Voids 2 3 - Exam Was examined at bedside this morning. Patient was sitting up in bed. Patient was awake, alert, and able to answer questions. On exam there is a surgical dressing over the left knee that appears clean, dry, intact, with no strikethrough or drainage. Left femoral nerve function is grossly intact. Patient is able to plantarflex and dorsiflex her left ankle and toes. Patient's left foot is well-perfused with capillary refill under 2 seconds. - Labs CBC & Chem 7: 12/31/23 03:08 Assessment and Plan Assessment: Status post left total knee arthroplasty on 12/30/2023 for left knee osteoarthritis Plan: Weight-bear as tolerated on operative extremity with walker. Dressing changes as needed. Patient would like to be discharged home later today. Patient I discussed different pain management modalities such as ice, elevation, and anti-inflammatory, will send in a prescription for Celebrex as patient denies having prior cardiac or renal disease. Educated patient to take after food and water and stop if any side effects and patient agreed to this plan of care.
--- NOTE | 2024-01-02 08:40 | P.DS ---
Providers Attending physician: Kentrell Disla Consults: 12/30/23 09:34 Consult Physician Routine Consulting Provider: Price Hagan Consult Reason/Comments: post op medical management Do you want consulting provider notified?: Yes Primary care physician: Bayron Apodaca MD Hospital Course: Patient is a very pleasant 78-year-old male, who presented to preop for scheduled left total knee arthroplasty for severe left knee osteoarthritis that had failed conservative management, on 12/30/[address] Kentrell Disla. Patient tolerated the procedure well. Patient was transferred to orthopedic floor. Patient worked with physical therapy and did well. Patient's pain has been controlled with oral pain medication. Patient was examined at bedside this morning. Incision was clean, no active drainage, no surrounding erythema. Spo ke with nursing staff who will apply a new dressing. Patient's femoral nerve function was grossly intact. Patient was able to plantarflex and dorsiflex the ankle and toes. Patient's foot appeared well-perfused with capillary refill under 2 seconds. Patient will have outpatient follow-up Patient was cleared from an orthopedic standpoint for discharge on 01/01/2024 in the AM but then proceeded to have nausea and vomiting with oral pain medication which was discussed with nursing staff and we agreed to keep him another night. Patient has been unable to tolerate multiple oral pain medication options, and has had approximately 3 episodes of vomiting since yesterday morning. Patient denies a significant amount of left knee pain, and states their left knee feels very good without opioid oral pain medication. We discussed using antiemetics and anti-inflammatories at home and patient would like to be discharged home today 01/02/2024 with these. Assessment: Status post left total knee arthroplasty for severe left knee osteoarthritis on 12/30/[address] Kentrell Disla Patient Condition at Discharge: Good Plan - Discharge Summary Discharge Rx Participant: Yes New Discharge Prescriptions: New Celecoxib [CeleBREX] 200 mg PO BID #60 cap Aspirin [Adult Low Dose Aspirin EC] 81 mg PO BID #60 tab Docusate [Colace] 100 mg PO BID #60 capsule HYDROcodone/APAP 10-325MG [[place] 10-325] 1 tab PO Q4HR PRN #32 tab PRN Reason: Pain Ondansetron [Zofran] 4 mg PO Q8HR PRN #21 tab PRN Reason: Nausea Continue Finasteride [Proscar] 5 mg PO DAILY Alfuzosin HCl [Alfuzosin HCl ER] 10 mg PO DAILY Atorvastatin [Lipitor] 20 mg PO HS Esomeprazole Magnesium [NexIUM] 20 mg PO DAILY Aspirin 81 mg PO DAILY Timolol 0.5% Ophth Soln [Timoptic 0.5% Ophth Soln] 1 drop BOTH EYES BID Diclofenac Sodium [Voltaren] 75 mg PO BID Latanoprost/Pf [Latanoprost 0.005% Eye Drop] 1 drop BOTH EYES DAILY Albuterol Inhaler [Ventolin Hfa Inhaler] 1 puff INHALATION Q3H PRN PRN Reason: Shortness Of Breath Or Wheezing Umeclidinium Brm/Vilanterol Tr [Anoro Ellipta 62.5-25 Mcg INH] 1 puff INHALATION DAILY Benzonatate 100 mg PO BID Ipratropium-Albuterol Nebulize [Duoneb 0.5 mg-3 mg/3 ml Soln] 3 ml INHALATION BID Discharge Medication List Alfuzosin HCl [Alfuzosin HCl ER] 10 mg PO DAILY 09/24/21 [History] Aspirin 81 mg PO DAILY 09/24/21 [History] Atorvastatin [Lipitor] 20 mg PO HS 09/24/21 [History] Diclofenac Sodium [Voltaren] 75 mg PO BID 09/24/21 [History] Esomeprazole Magnesium [NexIUM] 20 mg PO DAILY 09/24/21 [History] Finasteride [Proscar] 5 mg PO DAILY 09/24/21 [History] Latanoprost/Pf [Latanoprost 0.005% Eye Drop] 1 drop BOTH EYES DAILY 09/24/21 [History] Timolol 0.5% Ophth Soln [Timoptic 0.5% Ophth Soln] 1 drop BOTH EYES BID 09/24/21 [History] Albuterol Inhaler [Ventolin Hfa Inhaler] 1 puff INHALATION Q3H PRN 09/25/21 [History] Umeclidinium Brm/Vilanterol Tr [Anoro Ellipta 62.5-25 Mcg INH] 1 puff INHALATION DAILY 09/25/21 [History] Benzonatate 100 mg PO BID 12/24/23 [History] Ipratropium-Albuterol Nebulize [Duoneb 0.5 mg-3 mg/3 ml Soln] 3 ml INHALATION BID 12/24/23 [History] Aspirin [Adult Low Dose Aspirin EC] 81 mg PO BID #60 tab 12/31/23 [Rx] Docusate [Colace] 100 mg PO BID #60 capsule 12/31/23 [Rx] HYDROcodone/APAP 10-325MG [[place] 10-325] 1 tab PO Q4HR PRN #32 tab 12/31/23 [Rx] Ondansetron [Zofran] 4 mg PO Q8HR PRN #21 tab 12/31/23 [Rx] Celecoxib [CeleBREX] 200 mg PO BID #60 cap 01/02/24 [Rx] Follow up Appointment(s)/Referral(s): Kentrell Disla MD [STAFF PHYSICIAN] - 10 Days Activity/Diet/Wound Care/Special Instructions: Weight bear as tolerated May shower after 3 days if no bleeding Keep wound clean and dry Take meds as directed F/U with Dr. Disla in office Discharge Disposition: HOME WITH HOME HEALTH SERVICES
[2024-01-02 09:46] LABS: Basophils # (A) 0.06 X 10*3/uL (0.00-0.10); Basophils % (A) 0.6 %; Eosinophils # (A) 0.19 X 10*3/uL (0.04-0.35); Eosinophils % (A) 1.9 %; HCT 41.9 % (39.6-50.0); HGB 14.5 g/dL (13.0-17.0); Lymphocytes # (A) 1.18 X 10*3/uL (0.90-5.00); Lymphocytes % (A) 12.1 %; MCH 31.6 pg (27.0-32.0); MCHC 34.6 g/dL (32.0-37.0); MCV 91.3 FL (80.0-97.0); Mean Platelet Volume 9.4 FL (9.5-12.2); Monocytes # (A) 1.18 X 10*3/uL (0.20-1.00); Monocytes % (A) 12.1 %; NRBC Per 100 WBC 0 X 10*3/uL (0.00-0.01); Neutrophils # (A) 7.11 X 10*3/uL (1.80-7.70); Platelet Count 236 X 10*3/uL (140-440); RBC 4.59 X 10*6/uL (4.40-5.60); RDW 12.5 % (11.5-14.5); WBC 9.75 X 10*3/uL (4.50-10.00)
[2024-01-02] MEDS: KETOROLAC 15 MG/ML 1 ML VIAL IVP STA (13:25)
[2024-01-02] MEDS: PROCHLORPERAZINE INJ 10 MG/2 ML VIAL IVP STA (13:25)
[2024-01-02] MEDS: bisacodyL 10 MG SUPP RECTAL PRN (13:26)
[2024-01-02] MEDS: diphenhydrAMINE 50 MG/ML 1 ML VIAL IVP STA (13:26)
[2024-01-02 13:54] LABS: African American GFR (CKD) >90 (>60 ml/min/1.73 sqM); Anion Gap 4 mmol/L; Blood Urea Nitrogen 10 mg/dL (9-20); Calcium 8.9 mg/dL (8.4-10.2); Carbon Dioxide 29 mmol/L (22-30); Chloride 100 mmol/L (98-107); Glucose 137 mg/dL (74-99); Magnesium 1.9 mg/dL (1.6-2.3); Non-African American GFR(CKD) >90 (>60 ml/min/1.73 sqM); Potassium 4.3 mmol/L (3.5-5.1); Sodium 133 mmol/L (137-145)
[2024-01-02] MEDS: IBUPROFEN 400 MG TAB PO PRN (20:04)
--- NOTE | 2024-01-03 05:33 | P.PN ---
Subjective Progress Note Date: 01/02/24 This is a pleasant 78-year-old male who was recently admitted under orthopedics underwent left total knee arthroplasty with Dr. Dilsa. 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 Patient is currently up and walking to the bathroom with a walker and standby assistance and reports significant pain in the left knee. Patient reports was able to work with physical therapy although probably staying over another night for pain management and reevaluation with therapy in the morning. Patient reports was able to do some stairs 1 time with significant pain. Patient is afebrile with no reports of chest pain or shortness of breath. Patient reports to tolerating diet with no reported nausea or vomiting. Patient is urinating and reports to passing gas but has not had a bowel movement yet. 01/01/2024 Patient is evaluated in follow-up in the medical floor he is postoperative left total knee arthroplasty with Dr. Disla. Patient was evaluated physical therapy was cleared for discharge home with home care services. He has no acute complaints no chest pain no shortness of breath. He is tolerating diet. He is continued on bowel regimen. He is hemodynamically stable afebrile on room air. He will be going home today. 01/02/2024 Patient is seen in follow-up today and has been unable to tolerate any pain medications and continues with persistent nausea with vomiting. Continue Zofran and added Reglan and also patient is reporting headache. Patient also reports he has not had a bowel movement in over 4 days and recommend suppository along with laxatives until having a bowel movement as this may be contributing to some of his nausea. Patient has been experiencing nausea even with regular strength Tylenol. Patient is afebrile with no reports of chest pain or shortness of breath. Attempting small frequent meals at this time. Review of systems: Constitutional: No reports of fatigue, fever, or chills Cardiovascular: No reports of chest pain or palpitations Respiratory: No reports of shortness of breath or cough GI: reports of continued nausea, reports of vomiting, no diarrhea, no bowel movement as of yet, patient reports to passing gas : No reports of dysuria or retention Neurovascular: reports of generalized weakness, extreme left knee pain that is improving All medications have been reviewed PHYSICAL EXAMINATION: GENERAL: The patient is alert and oriented x4, Well developed, well nourished. Elderly appearing HEENT: Pupils are round and equally reacting to light. EOMI. no scleral icterus. No conjunctival pallor. Normocephalic, atraumatic. No pharyngeal erythema. No thyromegaly. CARDIOVASCULAR: S1 and S2 muffled PULMONARY: diminished breath sounds bilaterally with no wheezing or rhonchi noted. ABDOMEN: soft. Nontender on exam. non-distended, normoactive bowel sounds. No palpable organomegaly. MUSCULOSKELETAL: No joint swelling or deformity. EXTREMITIES: No cyanosis, clubbing, or pedal edema. Left knee surgical dressing is dry and intact NEUROLOGICAL: Gross neurological examination did not reveal any focal deficits. Diffuse weakness SKIN: No rashes. 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 Patient has been seen and evaluated by PT/OT therapy and reports he felt he did okay and will be going home with home care and outpatient rehab. Plan was for discharge home today with physical therapy. And has been cleared by orthopedics Patient continues to report significant nausea and vomiting after all medications including regular strength Tylenol and is concerned driving all the way home having continued nausea and inability to tolerate much oral intake. Will give Reglan and continue with Zofran as needed and also recommend suppository and laxatives as patient has not had a bowel movement in 4 days Encouraged incentive spirometer use at least 10 times an hour while awake Continue as needed bowel regimen and pain management per orthopedics We will continue to follow with orthopedics during hospitalization. Thank you kindly for this consultation. Possible discharge in the next 24 hours The impression and plan of care has been dictated by Marylou Singh, Nurse Practitioner as directed. Dr. Meg MD I have performed a history and physical examination and medical decision making of this patient, discussed the same with the dictator, and agree with the dictators assessment and plan as written, documented as a scribe. Based on total visit time, I have performed more than 50% of this visit. Objective - Vital Signs Vital signs: Vital Signs Temp 97.6 F 01/02/24 07:53 Pulse 76 01/02/24 08:24 Resp 17 01/02/24 07:53 BP 164/75 01/02/24 07:53 Pulse Ox 93 L 01/02/24 07:53 FiO2 Intake & Output 01/01/24 01/02/24 01/02/24 18:59 06:59 18:59 Other: Voiding Method Toilet # Voids 2 3 - Labs CBC & Chem 7: 01/02/24 02:22 01/02/24 13:00
[2024-01-03] MEDS: IBUPROFEN 600 MG TAB PO PRN (06:26)
[2024-01-03] MEDS: PROMETHAZINE 25 MG TAB PO PRN (13:37)
--- NOTE | 2024-01-03 15:03 | P.PN ---
Subjective Progress Note Date: 01/03/24 Principal diagnosis: Left TKA Patient is seen at bedside this morning. He is postop day #4 from left total knee arthroplasty. He has pain at the surgical site as expected. He has had some nausea and headaches that have kept him as an inpatient. He denies any other new complaints. He denies numbness, tingling or calf pain. Review of systems is negative for fever, chills, chest pain, shortness of breath or other Objective - Vital Signs Vital signs: Vital Signs Temp 98.4 F 01/03/24 13:22 Pulse 61 01/03/24 13:22 Resp 18 01/03/24 13:22 BP 165/75 01/03/24 13:22 Pulse Ox 93 L 01/03/24 13: FiO2 Intake & Output 01/02/24 01/03/24 01/03/24 18:59 06:59 18:59 Other: Voiding Method Toilet Toilet # Voids 1 2 - Exam Inspection reveals a benign surgical wound. There is no active bleeding or drainage. Neurovascular status is intact throughout the lower extremity with motor and sensation fully intact. Calf is soft and nontender. 2+ dorsalis pedis pulse and less than 2 second cap refill is present. - Constitutional General appearance: Present: no acute distress - Labs CBC & Chem 7: 01/02/24 02:22 01/02/24 13:00 Assessment and Plan (1) History of total left knee replacement Narrative/Plan: He will continue with routine postop orthopedic protocol including pain management, wound care, PT, DVT prophylaxis and medical management. I have added Phenergan to his medications and advised on holding off on stronger narcotic pain meds. Expect that he will transfer to home tomorrow Current Visit: No Status: Acute Priority: Medium Code(s): Z96.652 - PRESENCE OF LEFT ARTIFICIAL KNEE JOINT SNOMED Code(s): 5712147537872 Time with Patient: Less than 30
[2024-01-03] MEDS: CAFFEINE-SODIUM BENZOATE 500 MG in SODIUM CHLORIDE 0.9% 1,000 ML IVPB ONE (17:36)
[2024-01-04 07:37] VITALS: BP 157/73; RESP 17; TEMP 98.1
[2024-01-04 09:11] VITALS: PULSE 68
== END 2024-01-04 13:30 | disposition home health service (06) | DRG 470 ==
LOC: OR 08:03 → 4SSUR 12:21 → OR 01-03 08:21
PROVIDERS: ADMIT Orthopaedic Surgery Sports Medicine; ATTEND Orthopaedic Surgery Sports Medicine
PROC: 0SRD0J9 Replacement of Left Knee Joint with Synthetic Substitute, Cemented, Open Approach (ICD-10-PCS; principal; 2024-01-03)
PROC: 3E0T3BZ Introduction of Anesthetic Agent into Peripheral Nerves and Plexi, Percutaneous Approach (ICD-10-PCS; 2024-01-03)
DX: M17.12 Unilateral primary osteoarthritis, left knee (principal); J44.9 Chronic obstructive pulmonary disease, unspecified; K21.9 Gastro-esophageal reflux disease without esophagitis; Z79.899 Other long term (current) drug therapy; Z85.118 Personal history of other malignant neoplasm of bronchus and lung; Z85.3 Personal history of malignant neoplasm of breast; Z85.820 Personal history of malignant melanoma of skin; Z96.652 Presence of left artificial knee joint; Z88.5 Allergy status to narcotic agent; H40.9 Unspecified glaucoma
CPT/HCPCS: 64448; 64999; 85025; 85610; 85730; 94640